=== PATIENT | male | born 1985 | race Two or more races ===

== ENCOUNTER 2023-01-24 16:59 | Emergency (ER) | payer BC, OTHER ==
[2023-01-24] MEDS ORDERED: SULFAMETHOXAZOLE/TRIMETHOPRIM 800MG/160MG D.S. TABLET PO ONE (17:29)
[2023-01-24] MEDS ORDERED: DIPHTH,PERTUSS(ACELL),TET 0.5 ML DISP.SYRIN IM ONE ×2 (17:29→17:54)
[2023-01-24] MEDS ORDERED: CEPHALEXIN MONOHYDRATE 500 MG CAPSULE (UD) PO ONE (17:29)
[2023-01-24 17:36] VITALS: BP 114/77; PULSE 77; RESP 18; TEMP 99.5; BMI 23.6
[2023-01-24] MEDS ORDERED: IBUPROFEN 600 MG TABLET (FP) PO ONE ×2 (17:39→17:53)
[2023-01-24] MEDS ORDERED: CEPHALEXIN MONOHYDRATE 500 MG CAPSULE (UD) ONE (17:53)
[2023-01-24] MEDS ORDERED: SULFAMETHOXAZOLE/TRIMETHOPRIM 800MG/160MG D.S. TABLET ONE (17:54)
== END 2023-01-24 18:05 | disposition home or self-care (01) ==
LOC: FER 16:59
PROC: 3E0234Z Introduction of Serum, Toxoid and Vaccine into Muscle, Percutaneous Approach (ICD-10-PCS; principal; 2023-01-24)
DX: S51.012A Laceration without foreign body of left elbow, initial encounter (principal); W26.8XXA Contact with other sharp object(s), not elsewhere classified, initial encounter; Y99.0 Civilian activity done for income or pay; Y92.9 Unspecified place or not applicable
CPT/HCPCS: 90715; 99283-25